=== PATIENT | female | born 1985 | race Caucasian/White ===

== ENCOUNTER 2025-04-15 07:27 | Day surgery (SDC) | payer OTHER ==
[~2025-04-15] VITALS: Ht 165.1 cm; Wt 64.7 kg
[~2025-04-15 07:27] MED LIST: ALTA1TAB3 PO; AMPH1CAP16 PO; BUSP5TA PO; DULO1CAP4 PO; LIDOCAINE 2% 100 MG/5 ML SDV (FOR ANES.) As Ordered ONE; MIDAZOLAM INJ 2 MG/2 ML VIAL As Ordered ONE; ROCURONIUM BROMIDE 50MG/5ML VIAL As Ordered ONE
[2025-04-15] MEDS ORDERED: LR 1,000 ML IV SCH ×2 (07:45→09:10)
[2025-04-15] MEDS ORDERED: ACETAMINOPHEN 1000MG/100ML IV BAG As Ordered ONE (08:28)
[2025-04-15] MEDS ORDERED: dexAMETHasone 4 MG/ML 1 ML VIAL As Ordered ONE (08:28)
[2025-04-15] MEDS ORDERED: ONDANSETRON 4MG 2ML VIAL As Ordered ONE (08:28)
[2025-04-15] MEDS ORDERED: SUGAMMADEX SODIUM 500 MG/5 ML VIAL As Ordered ONE (08:31)
[2025-04-15] MEDS: HYDROMORPHONE HCL 0.5 MG/0.5 ML SYRINGE IV PRN (09:20)
[2025-04-15] MEDS: ONDANSETRON 4MG 2ML VIAL IV PRN (09:20)
[2025-04-15 11:25] VITALS: BP 124/89; TEMP 98.2; O2SAT 96
== END 2025-04-15 11:32 | disposition home or self-care (01) ==
LOC: M SDC 07:27
PROVIDERS: ATTEND Surgery
DX: K81.1 Chronic cholecystitis (principal); F41.9 Anxiety disorder, unspecified; Z79.899 Other long term (current) drug therapy; Z88.2 Allergy status to sulfonamides; Z88.1 Allergy status to other antibiotic agents; Z88.6 Allergy status to analgesic agent; Z88.7 Allergy status to serum and vaccine; Z90.49 Acquired absence of other specified parts of digestive tract; Z98.51 Tubal ligation status
CPT/HCPCS: 47562; 81025; 88304; J0131; J0665; J1100; J1171; J2250; J2405; J3010; S2900